=== PATIENT | female | born 1955 | race Caucasian/White ===

== ENCOUNTER 2017-04-17 08:58 | Emergency (ER) | payer SELFPAY ==
[~2017-04-17] VITALS: Ht 152.4 cm; Wt 88.5 kg
[2017-04-17] MEDS ORDERED: IPRATROPIUM NEB FS 0.5 MG/2.5 ML AMPUL.NEB NEB ONE (09:30)
[2017-04-17] MEDS ORDERED: ALBUTEROL FS 2.5 MG/3 ML VIAL.NEB NEB ONE (09:30)
[2017-04-17] MEDS ORDERED: predniSONE 20 MG TABLET PO ONE (09:30)
[2017-04-17] MEDS ORDERED: predniSONE 20 MG TABLET ONE (09:35)
--- NOTE | 2017-04-17 09:39 | NUR ---
HOSPITAL CLERK AT BEDSIDE.
[2017-04-17] MEDS ORDERED: ALBUTEROL FS 2.5 MG/3 ML VIAL.NEB ONE (09:42)
[2017-04-17] MEDS ORDERED: IPRATROPIUM NEB FS 0.5 MG/2.5 ML AMPUL.NEB ONE (09:42)
[2017-04-17] MEDS ORDERED: ONDANSETRON 4 MG TAB.RAPDIS SL ONE (10:00)
[2017-04-17] MEDS ORDERED: ONDANSETRON 4 MG TAB.RAPDIS ONE (10:03)
--- NOTE | 2017-04-17 10:43 | NUR ---
Patient discharged to home in stable condition. Written and verbal after care instructions given. Patient verbalizes understanding of instruction.
[2017-04-17 10:48] VITALS: BP 145/84
== END 2017-04-17 10:48 | disposition home or self-care (01) ==
LOC: ER 09:00
DX: J40 Bronchitis, not specified as acute or chronic (principal); R06.2 Wheezing; E03.9 Hypothyroidism, unspecified; I10 Essential (primary) hypertension
CPT/HCPCS: 71045; 94640 ×2; 99284; A4606; J7512; Z7610; Q0162

== ENCOUNTER 2018-08-10 04:11 | Emergency (ER) | payer OTHER ==
[~2018-08-10] VITALS: Ht 157.5 cm; Wt 77.1 kg
--- NOTE | 2018-08-10 04:25 | NUR ---
BIBA FOR C/O HIGH BP AT HOME. PMH: HTN. PTALSO W/ C/O NAUSEA. PLACED ON A MONITOR . VS OBTAINED, BP: 133/56. WILL CONT TO MONITOR ,
[2018-08-10] MEDS ORDERED: LOSA50TA39 PO (04:35)
[2018-08-10] MEDS ORDERED: CARV25TA2 PO (04:37)
[2018-08-10] MEDS ORDERED: VALE150C PO (04:37)
[2018-08-10] MEDS ORDERED: CARV20CP PO (04:37)
[2018-08-10] MEDS ORDERED: LEVO88TA2 PO (04:38)
[2018-08-10 05:12] LABS: BASOPHILS % (AUTO) 0.5 % (0.0-2.0); EOSINOPHILS % (AUTO) 1.4 % (0.0-6.0); HEMATOCRIT 40 % (33-45); HEMOGLOBIN 13.5 g/dL (11.5-14.8); LYMPHOCYTES # (AUTO) 1.5 /CMM (0.8-4.8); LYMPHOCYTES % (AUTO) 19.9 % (20.0-44.0); MEAN CORPUSCULAR HGB CONC 34 g/dl (31.0-36.0); MEAN CORPUSCULAR VOLUME 89 fL (82-100); MONOCYTES # (AUTO) 0.6 /CMM (0.1-1.30); MONOCYTES % (AUTO) 7.8 % (2.0-12.0); NEUTROPHILS # (AUTO) 5.4 /CMM (1.8-8.9); NEUTROPHILS % (AUTO) 70.4 % (43.0-81.0); PLATELET COUNT (AUTO) 236 /CMM (150-450); RED BLOOD CELL COUNT(AUTO) 4.47 MIL/uL (4.0-5.2); WHITE BLOOD COUNT (AUTO) 7.7 K/uL (4.3-11.0)
[2018-08-10 05:17] LABS: CALCIUM, SERUM 8.6 mg/dL (8.5-10.1); CARBON DIOXIDE 26 mmol/L (21-32); CHLORIDE 107 mmol/L (98-107); CREATININE 0.7 mg/dL (0.6-1.3); GLUCOSE 133 mg/dL (74-106); POTASSIUM 4.2 mmol/L (3.5-5.1); SODIUM SERUM 142 mmol/L (136-145); UREA NITROGEN, BLOOD 26 mg/dL (7-18)
--- NOTE | 2018-08-10 05:40 | NUR ---
Patient discharged to home in stable condition. Written and verbal after care instructions given. Patient verbalizes understanding of instruction.
[2018-08-10 05:41] VITALS: BP 147/73
== END 2018-08-10 05:42 | disposition home or self-care (01) ==
LOC: ER 04:14
DX: I10 Essential (primary) hypertension (principal); E03.9 Hypothyroidism, unspecified; Z79.899 Other long term (current) drug therapy
CPT/HCPCS: 36415; 80048-TC; 84484-TC; 85025-TC